=== PATIENT | male | born 1955 | race Caucasian/White ===

== ENCOUNTER 2018-10-11 18:22 | Emergency (ER) | payer SELFPAY ==
[~2018-10-11] VITALS: Ht 177.8 cm; Wt 103.1 kg
[~2018-10-11 18:22] MED LIST: NO DAILY MEDS
[2018-10-11 18:30] VITALS: Ht 177.8 cm; Wt 103.1 kg
--- NOTE | 2018-10-11 18:56 | ERD ---
ER Documentation Chief Complaint Chief Complaint bib ra from home for SOB and dizziness x3 days HPI This is a 63-year-old male who presents to the emergency room after being brought in by ambulance from home for evaluation of shortness of breath, dizziness for the past 3 days. The patient states that he had a pacemaker placed on Friday, October 07. The patient states that he is having some pain over the pacemaker site, and also states he is been feeling weak. EMS stated the patient's heart rate was 115 bpm. They state that an EKG was obtained and then showed a rate of 80 bpm. The patient denies any nausea or vomiting but does that he is mildly short of breath and came to the ER today for evaluation of his symptoms. The patient did have a pacemaker placed at [facility] ROS All systems reviewed and are negative except as per history of present illness. PMhx/Soc History of Surgery: Yes (pacemaker) Anesthesia Reaction: No Hx Neurological Disorder: No Hx Respiratory Disorders: No Hx Cardiac Disorders: Yes (htn) Hx Psychiatric Problems: No Hx Miscellaneous Medical Probl: No Hx Alcohol Use: No Hx Substance Use: No Hx Tobacco Use: No Smoking Status: Never smoker Physical Exam Vitals Vital Signs Date Temp Pulse Resp B/P (MAP) Pulse Ox O2 O2 Flow FiO2 Time Delivery Rate 10/11/18 75 32 131/47 99 Mechanical 19:56 (75) Ventilator 10/11/18 98.3 83 16 171/98 100 18:30 (122) Physical Exam INITIAL VITAL SIGNS: Reviewed by me GENERAL: The patient is well developed and appropriate for usual state of health in no apparent distress HEENT: Pupils equal, round, and reactive to light. EOMI. There is no scleral icterus. NECK: C-spine is soft and supple, there is no meningismus. There is no cervical lymphadenopathy. LUNGS: Clear to auscultation bilaterally. There are no rales, wheezes or rhonchi. HEART: Regular rate and rhythm, no murmurs, clicks, rubs or gallops. ABDOMEN: Soft, non-tender, non-distended. There are bowel sounds in all four quadrants. No rebound or guarding. EXTREMITIES: There is no peripheral cyanosis or edema. No focal swelling or erythema. NEUROLOGICAL: The patient moves all four extremities with 5/5 strength. Cranial nerves II - XII are intact. Normal gait. Alert and oriented SKIN: Healing incision over the left anterior chest wall there is no apparent rash or petechiae. HEME/LYMPHATIC: There is no evidence of excessive bruising or lymphedema. PSYCHIATRIC: The patient does appeared to be anxious Result Diagram: 10/11/18183410/11/181834 Results 24 hrs Laboratory Tests Test 10/11/18 18:35 White Blood Count 12.7 10^3/ul Red Blood Count 5.11 10^6/ul Hemoglobin 15.4 g/dl Hematocrit 43.7 % Mean Corpuscular Volume 85.5 fl Mean Corpuscular Hemoglobin 30.1 pg Mean Corpuscular Hemoglobin Concent 35.2 g/dl Red Cell Distribution Width 11.9 % Platelet Count 287 10^3/UL Mean Platelet Volume 10.0 fl Immature Granulocytes % 0.600 % Neutrophils % 70.0 % Lymphocytes % 21.0 % Monocytes % 7.2 % Eosinophils % 0.7 % Basophils % 0.5 % Nucleated Red Blood Cells % 0.0 /100WBC Immature Granulocytes # 0.070 10^3/ul Neutrophils # 8.9 10^3/ul Lymphocytes # 2.7 10^3/ul Monocytes # 0.9 10^3/ul Eosinophils # 0.1 10^3/ul Basophils # 0.1 10^3/ul Nucleated Red Blood Cells # 0.0 10^3/ul Sodium Level 136 mmol/L Potassium Level 3.4 mmol/L Chloride Level 100 mmol/L Carbon Dioxide Level 21 mmol/L Anion Gap 15 Blood Urea Nitrogen 14 mg/dl Creatinine 0.76 mg/dl Est Glomerular Filtrat Rate mL/min > 60 mL/min Glucose Level 202 mg/dl Calcium Level 9.8 mg/dl Troponin I < 0.012 ng/ml Procedures/[facility] EKG: Rate/Rhythm: Paced rhythm QRS, ST, T-waves: [No changes consistent w/ acute ischemia] Impression: Paced rhythm Chest X-ray 1V Interpreted by me: Soft Tissue: No acute abnormalities Bones: No acute abnormalities Mediastinum/Cardiac Silhouette/Lungs: [No acute abnormalities] 1899: Spoke to [employer] rep and she agrees to come in and evaluate the patien t's pacemaker 2026: [employer] rep finished interrogating pacemaker and there is no complication and states the pacemaker is working fine. This 63-year-old male presents to the emergency room for evaluation of heart palpitations and mild shortness of breath and dizziness. On my exam the patient did appear to be anxious appearing. His EKG does show paced rhythm however EMS stated his heart rate was 100 50. The patient recently had a pacemaker placed at [facility] by Dr. Hale. The patient had lab work drawn which is normal, chest x-ray is clear. His EKG does show paced rhythm with no sclerosis criteria. I did call [employer] [facility] and spoke to her. She did come to the ER and evaluated and interrogated the patient's pacemaker. There does not seem to be any problem with the pacemaker. 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 He does feel comfortable with her plan of care and remains hemodynamically stable. There could be a component of anxiety to this patient symptoms Departure Diagnosis: Primary Impression: Palpitations Additional Impression: History of pacemaker Condition: KEELY Gonzalez DO Oct 11, 2018 18:56
[2018-10-11 19:56] VITALS: BP 131/47; PULSE 75; RESP 32
[2018-10-11] MEDS ORDERED: LORAZEPAM 0.5 MG TAB PO ONE (20:30)
== END 2018-10-11 20:48 | disposition home or self-care (01) ==
LOC: E/R 18:22 → MERGE 18:22 → E/R 20:48
DX: R00.2 Palpitations (principal); R40.2142 Coma scale, eyes open, spontaneous, at arrival to emergency department; R40.2252 Coma scale, best verbal response, oriented, at arrival to emergency department; R40.2362 Coma scale, best motor response, obeys commands, at arrival to emergency department; I10 Essential (primary) hypertension; Z95.0 Presence of cardiac pacemaker
CPT/HCPCS: 36415; 71045; 80048; 84484; 85025; 93005